=== PATIENT | female | born 1945 | race Caucasian/White ===

== ENCOUNTER → 2020-12-05 10:13 | Outpatient (CLI) | payer MEDICARE, OTHER, SELFPAY ==
--- NOTE | 2020-12-05 10:31 | MRI_ITS ---
STUDY: MRI THORACIC SPINE WITHOUT CONTRAST REASON FOR EXAM: Female, 75 years old patient with compression fracture. TECHNIQUE: Standardized fat and water weighted pulse sequences were obtained in the sagittal and axial planes. COMPARISON: None. FINDINGS: There is an increased kyphosis of the thoracic spine. There is no substantial scoliosis. T1-2, T2-3, T3-4, T4-5, T5-6, T6-7, T7-8, T8-9, T9-10, T10-11, T11-12: There are compression fractures of T2 and T3 which appear acute. Estimated by compression of T2 is approximately 30% of that expected height of this vertebral body. There is moderate compression fracture of T3 with approximately 60% compression. There is moderate compression fracture of T7 and T8 which is old. There is severe compression fracture of T9 which is old. There is severe compression fracture of T12 with significant amount of compression of 80%. The spinal canal appears to be patent. The neural foramina are patent. There is no apparent nerve root impingement. Normal visualized thoracic cord. Normal conus medullaris that terminates at the L1 level.. There is a right-sided renal cyst measuring approximately 1.7 cm. There is a complex cyst of the left kidney that has decreased T2 signal and bright T2 signal that may represent milk of calcium. The respiratory motion artifact limits evaluation. MRI/Spine Thoracic (Routine) IMPRESSION: 1. Acute compression fractures of T2 and T3. 2. Multiple old compression fractures of the thoracic spine as described. 3. Complex left-sided renal cystic nodule Electronically Signed: Deja Robertson MD at 15:05 EDT , Service support ,
== END ==
PROVIDERS: PCP Family Medicine; Referring Provider Family Medicine; Visit Provider Family Medicine
DX: S22.000A Wedge compression fracture of unspecified thoracic vertebra, initial encounter for closed fracture (principal); X58.XXXA Exposure to other specified factors, initial encounter; Y93.9 Activity, unspecified; Y92.9 Unspecified place or not applicable; Y99.9 Unspecified external cause status
CPT/HCPCS: 72146